=== PATIENT | female | born 1955 | race Caucasian/White ===

== ENCOUNTER 2020-11-06 20:51 | Emergency (ER) | payer OTHER, MEDICARE ==
[2020-11-06] MEDS ORDERED: Boostrix 0.5 ML (Tdap) VIAL ONE (21:04)
[2020-11-06] MEDS ORDERED: Lidocaine 1% w/Epinephrine 1:100K 20 ML VIAL ONE (21:37)
[2020-11-06] MEDS ORDERED: Bacitracin 1 PK ONE (22:05)
== END 2020-11-06 22:15 | disposition home or self-care (01) ==
LOC: NAV ERS 20:51
DX: S01.81XA Laceration without foreign body of other part of head, initial encounter (principal); S63.501A Unspecified sprain of right wrist, initial encounter; S50.311A Abrasion of right elbow, initial encounter; S40.211A Abrasion of right shoulder, initial encounter; W01.0XXA Fall on same level from slipping, tripping and stumbling without subsequent striking against object, initial encounter
CPT/HCPCS: 12011; 90471; 90715

== ENCOUNTER 2020-11-13 16:30 | Emergency (ER) | payer MEDICARE, OTHER | END 2020-11-13 16:50 | disposition home or self-care (01) | LOC: NAV ERS 16:30 | DX: S01.81XD Laceration without foreign body of other part of head, subsequent encounter (principal) ==